=== PATIENT | male | born 1990 | race American Indian/Alaskan Native ===

== ENCOUNTER 2017-09-13 13:53 | Emergency (ER) | payer OTHER ==
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
[2017-09-13] MEDS ORDERED: TORADOL IM ONE (20:53)
[2017-09-13 22:35] VITALS: BP 128/88
== END 2017-09-13 21:55 | disposition home or self-care (01) ==
LOC: ED 13:53
DX: M25.522 Pain in left elbow (principal); M79.651 Pain in right thigh; F17.200 Nicotine dependence, unspecified, uncomplicated; V79.9XXA Bus occupant (driver) (passenger) injured in unspecified traffic accident, initial encounter; Y93.89 Activity, other specified; Y99.8 Other external cause status; Y92.488 Other paved roadways as the place of occurrence of the external cause
CPT/HCPCS: 96372; 99282; J1885